=== PATIENT | male | born 1950 | race Caucasian/White ===

== ENCOUNTER 2016-11-28 07:05 | Emergency (ER) | payer OTHER ==
[~2016-11-28] VITALS: Ht 167.6 cm; Wt 62.0 kg
[2016-11-28 07:09] VITALS: Ht 167.6 cm; Wt 62.0 kg
[2016-11-28] MEDS ORDERED: IBUP800T25 PO (07:54)
--- NOTE | 2016-11-28 09:17 | ERD ---
DATE OF SERVICE: HISTORY OF PRESENT ILLNESS: The patient is a 66-year-old male complaining of mild swelling on a holli t on his right arm. He states that it feels tight. He has no loss of sensation to his digits. The cast was placed 2 days ago at the orthopedist's office. He has not had any numbness or tingling to his fingers. He is able to move his fingers without any difficulty. He is unable to be seen by hi s ortho, given that it is the weekend. His orthopedist is Dr. Jeet Garcia. PAST MEDICAL HISTORY: Denies medical problems. ALLERGIES: Denies allergies to medications. PAST SURGICAL HISTORY: Denies surgeries or hospitalizations. REVIEW OF SYSTEMS: A 12-point review of systems was done. Refer to the HPI for positives, all othe r systems are negative. PHYSICAL EXAMINATION: VITAL SIGNS: Temperature is 97.8, pulse is 74, blood pressure is 133/82, respiratory rate 18, O2 sa turation 99% on room air. Pain intensity of 4/10. GENERAL: The patient is well-appearing, well-nourished, in no acute distress. HEENT: Atraumatic. Conjunctivae are pink. Pupils equal, round, and reactive to light. There is no s cleral icterus. Tympanic membranes clear bilaterally. Oropharynx clear. No nystagmus or photophobia . CHEST: Clear to auscultation bilaterally. There are no rales, wheezes or rhonchi. HEART: Regular rate and rhythm. No murmurs, clicks, rubs or gallops. No S3 or S4. EXTREMITIES: The patient has bilateral casts placed. He is able to move his fingers without any di fficulty on the right side and left side. The patient is neurovascularly intact, with cap refills o f less than 2 seconds to the right distal extremity. EMERGENCY ROOM COURSE: I offered the patient to have his cast removed and place a splint and have t he patient follow up with the orthopedist within 2 days, when they are open on Wednesday, to have a new cast placed. After reconsideration, the patient decided that he did not want the cast removed and he would rather elevate to reduce swelling. I felt this was appropriate, as the patient does not hav e any loss of sensation and cap refills are within normal limits. So I have a low suspicion for vas cular insufficiency to the distal extremity. DIAGNOSIS: Hand swelling. MEDICAL DECISION MAKING: I have a low suspicion for compartment syndrome, a low suspicion for vascul ar insufficiency or deficits to the distal extremity. I did not feel that it was necessary to remov e the cast; however, I did offer it to the patient multiple times if he felt that the swelling was t oo uncomfortable. The patient states he would rather go home and attempt to reduce the swelling wit h elevation before removing the cast. I did explain the risks versus benefits of not having the holli t removed, as there is a potential concern for vascular compromise and neuro compromise. The patien t understood. He will return. He was given strict ER precautions if symptoms change or worsen. DISCHARGE: The patient was discharged stable. Patient was told to follow up with his primary care and ortho within 2 days. The patient was given strict ER precautions and told to return if symptoms change or worsen prior to his visit with orthopedics. All other questions were answered at the christal e of discharge. Discharge summary was given at the time of departure. Patient understood and compl ied with the plan. Dictated By: ANGELA RAHMAN for TONI HUGO/NTS Conf#: [id number] DID#: [id number]
== END 2016-11-28 08:07 | disposition home or self-care (01) ==
LOC: FTE 07:05
DX: M79.89 Other specified soft tissue disorders (principal)
CPT/HCPCS: 99283